=== PATIENT | female | born 1985 | race Caucasian/White ===

== ENCOUNTER 2023-07-10 15:15 | Inpatient (IN) | payer MEDICAID ==
[~2023-07-10] VITALS: Ht 182.9 cm; Wt 66.5 kg
[2023-07-10 16:39] LABS: MEAN PLATELET VOLUME 7.5 FL (7.4-10.4)
[2023-07-10 16:41] LABS: HEMATOCRIT 39.1 % (35.0-45.0); HEMOGLOBIN 13.6 g/dl (12.0-16.0); MEAN CORPUSCULAR HGB CONC 34.7 g/dL (33.0-36.5); MEAN CORPUSCULAR VOLUME 95.2 FL (78-98); PLATELET COUNT 320 X10'3 (140-440); RED BLOOD COUNT 4.11 X10'6 (4.20-5.60); RED CELL DISTRIBUTION WIDTH 15.5 % (11.5-14.5); WHITE BLOOD COUNT 8.5 X10'3 (4.5-11.0)
[2023-07-10 16:48] LABS: ALANINE AMINOTRANSFERASE 69 U/L (12-78); ALBUMIN 4.4 G/DL (3.4-5.0); ALBUMIN/GLOBULIN RATIO 1.2 (1.1-1.5); ALKALINE PHOSPHATASE 88 IU/L (46-116); ANION GAP 15 (8-16); ASPARTATE AMINO TRANSFERASE 108 U/L (10-37); BILIRUBIN,TOTAL 0.5 MG/DL (0.1-1.0); BLOOD UREA NITROGEN 7 MG/DL (7-18); BUN/CREATININE RATIO 9.1 (10.0-20.0); CALCIUM 9.6 MG/DL (8.5-10.1); CHLORIDE 95 MMOL/L (99-107); CREATININE 0.77 MG/DL (0.40-0.90); GLUCOSE 88 MG/DL (70-104); LIPASE 37 U/L (16-77); POTASSIUM 3.3 MMOL/L (3.5-5.1); SODIUM 136 MMOL/L (135-145); TOTAL CARBON DIOXIDE 26.1 MMOL/L (24-32); TOTAL PROTEIN 8.2 G/DL (6.4-8.2); eCRCL 103 ML/MIN; eGFR 83 ML/MIN
[2023-07-10] MEDS ORDERED: pantoprazole 40 MG vial IV ONE (16:55)
[2023-07-10] MEDS ORDERED: pantoprazole 40 MG/NS 100ML add-vantage BAG IV ONE (16:55)
[2023-07-10] MEDS ORDERED: mag hydrox/Alum hydrox/simeth 30ml oral suspension PO ONE ×2 (16:55→19:28)
[2023-07-10 17:04] LABS: PLATELET ESTIMATE NORMAL; TOTAL CELLS COUNTED 100
[2023-07-10] MEDS ORDERED: LORazepam 2 mg/ml vial IV ONE (17:10)
[2023-07-10] MEDS ORDERED: normal saline 1000ML IV soln IVB ONE (17:10)
[2023-07-10] MEDS ORDERED: pantoprazole 40mg IV 80 MG in normal saline 100ml IV soln 100 ML IV ONE (17:10)
[2023-07-10 17:17] LABS: ETHANOL 265 MG/DL (<10)
[2023-07-10] MEDS ORDERED: ondansetron/PF 4mg/2ml inj IV ONE ×2 (18:10)
[2023-07-10] MEDS ORDERED: potassium Cl 20mEq/100mL bag 100 ML IV SCH (18:40)
[2023-07-10] MEDS ORDERED: potassium Cl 40MEQ/1/2NS 520ml 520 ML IV ONE (19:00)
[2023-07-10 19:11] LABS: INR 0.9 INR
[2023-07-10] MEDS: octreotide inj. 500 MCG in normal saline 100ml IV soln 97.5 ML IV SCH ×2 (19:35→19:36)
[2023-07-10 19:48] LABS: URINE HCG NEGATIVE (NEG)
[2023-07-10 19:54] LABS: BILIRUBIN,URINE NEGATIVE (Neg); CLARITY,URINE CLOUDY (Clear); COLOR,URINE YELLOW (Yellow); GLUCOSE, URINE NEGATIVE (Neg); KETONES,URINE >=80 mg/dl (Neg); LEUKOCYTE ESTERASE ,URINE NEGATIVE (Neg); NITRITES, URINE NEGATIVE (Neg); OCCULT BLOOD,URINE TRACE-INTACT (Neg); PROTEIN,URINE 100 mg/dl (Neg); UROBILINOGEN,URINE 0.2 E.U/dL (0.2-1.0)
[2023-07-10 20:07] LABS: UA COLLECTION TYPE NON-SPECIFIED
[2023-07-10 20:08] LABS: URINE AMPHETAMINE SCREEN NEGATIVE (Neg); URINE BARBITUATE SCREEN NEGATIVE (Neg); URINE BENZODIAZEPINES SCREEN NEGATIVE (Neg); URINE CANNABINOID SCREEN NEGATIVE (Neg); URINE COCAINE SCREEN POSITIVE (Neg); URINE METHADONE SCREEN NEGATIVE (Neg); URINE OPIATE SCREEN NEGATIVE (Neg); URINE PHENCYCLIDINE SCREEN NEGATIVE (Neg)
[2023-07-10 20:09] LABS: MUCUS STRANDS NONE SEEN /LPF (Neg); SQUAMOUS EPITHELIAL CELL,UR MODERATE /LPF (FEW); WBC,URINE 0-4 /HPF (0-4)
[2023-07-10 20:10] LABS: TRANSITIONAL EPI CELLS,URINE FEW /HPF
[2023-07-10 20:11] LABS: AMORPHOUS PHOSPHATES 3+
[2023-07-10 20:12] LABS: BACTERIA,URINE FEW /HPF (Neg); RBC,URINE 0-2 /HPF (0-2)
[2023-07-10] MEDS ORDERED: potassium Cl 20 mEq SR tablet PO PRN ×2 (21:10)
[2023-07-10] MEDS ORDERED: HYDROcodone/acetaminophen 5mg/325mg tablet PO PRN (21:10)
[2023-07-10] MEDS ORDERED: LORazepam 1 MG tablet PO PRN (21:10)
[2023-07-10] MEDS ORDERED: morphine 2 MG/ML inj. syringe IV PRN (21:10)
[2023-07-10] MEDS ORDERED: potassium Cl 40MEQ/1/2NS 520ml 520 ML IV PRN (21:10)
[2023-07-10] MEDS ORDERED: magnesium 2GM in 50ml NS 50 ML IV PRN (21:10)
[2023-07-10] MEDS ORDERED: acetaminophen 325mg tablet PO PRN ×2 (21:10)
[2023-07-10] MEDS ORDERED: magnesium 4gm in 100ml NS 100 ML IV PRN (21:10)
[2023-07-10] MEDS ORDERED: ondansetron/PF 4mg/2ml inj IV PRN (21:10)
[2023-07-10] MEDS ORDERED: magnesium Cl slow-release 64mg tablet PO PRN (21:10)
[2023-07-10] MEDS: LORazepam 2 mg/ml vial IV PRN (21:33)
[2023-07-10] MEDS: normal saline 1000ml 1,000 ML IV SCH (21:47)
[2023-07-11] VITALS (8 sets, daily range): BP systolic 128–159; BP diastolic 89–110; PULSE 80–92; RESP 12–18; TEMP 98.2; O2SAT 94–100
[2023-07-11] MEDS: nicotine 14mg patch - 24hr TD SCH ×2 (01:13→08:00)
[2023-07-11] MEDS: LORazepam 2 mg/ml vial IV PRN (03:45)
--- NOTE | 2023-07-11 04:11 | NUR ---
pt ambulatory to the BR independently c steady gait. VSS
[2023-07-11] MEDS ORDERED: pantoprazole 40MG/NS 100ML BAG 100 ML IV SCH (08:00)
[2023-07-11] MEDS ORDERED: folic acid 1mg/0.2ml inj IV SCH (08:00)
[2023-07-11] MEDS ORDERED: thiamine 100mg/ml 2ml inj. IV SCH (08:00)
[2023-07-11] MEDS: normal saline 1000ml 1,000 ML IV SCH (08:04)
[2023-07-11 09:26] LABS: BASOPHILS # (AUTO) 0.1 X10'3 (0-0.2); BASOPHILS % (AUTO) 1.8 % (0-1); EOSINOPHILS # (AUTO) 0.2 X10'3 (0-0.9); EOSINOPHILS % (AUTO) 2.8 % (0-6); HEMATOCRIT 37.2 % (35.0-45.0); HEMOGLOBIN 12.3 g/dl (12.0-16.0); LYMPHOCYTES % (AUTO) 17.2 % (21-51); MEAN CORPUSCULAR HEMOGLOBIN 32.1 PG (27.0-31.0); MEAN CORPUSCULAR VOLUME 97.2 FL (78-98); MEAN PLATELET VOLUME 8.2 FL (7.4-10.4); MONOCYTES # (AUTO) 0.6 X10'3 (0-0.9); MONOCYTES % (AUTO) 10.5 % (2-12); NEUTROPHILS # (AUTO) 4.1 X10'3 (1.8-7.7); NEUTROPHILS % (AUTO) 67.7 % (42-75); PLATELET COUNT 268 X10'3 (140-440); RED BLOOD COUNT 3.83 X10'6 (4.20-5.60); RED CELL DISTRIBUTION WIDTH 15.4 % (11.5-14.5); WHITE BLOOD COUNT 6.1 X10'3 (4.5-11.0)
[2023-07-11 10:07] LABS: ALANINE AMINOTRANSFERASE 67 U/L (12-78); ALBUMIN 3.6 G/DL (3.4-5.0); ALBUMIN/GLOBULIN RATIO 1.1 (1.1-1.5); ALKALINE PHOSPHATASE 75 IU/L (46-116); ANION GAP 20 (8-16); ASPARTATE AMINO TRANSFERASE 105 U/L (10-37); BILIRUBIN,TOTAL 1.2 MG/DL (0.1-1.0); BLOOD UREA NITROGEN 9 MG/DL (7-18); CALCIUM 8.1 MG/DL (8.5-10.1); CHLORIDE 98 MMOL/L (99-107); CREATININE 0.75 MG/DL (0.40-0.90); GLUCOSE 77 MG/DL (70-104); LIPASE 24 U/L (16-77); MAGNESIUM 2.3 MG/DL (1.5-2.4); PHOSPHORUS 3.2 MG/DL (2.3-4.5); POTASSIUM 4.4 MMOL/L (3.5-5.1); SODIUM 136 MMOL/L (135-145); TOTAL CARBON DIOXIDE 18.2 MMOL/L (24-32); TOTAL PROTEIN 6.8 G/DL (6.4-8.2); eCRCL 106 ML/MIN; eGFR 86 ML/MIN
--- NOTE | 2023-07-11 11:21 | NUR ---
Received order for consult. Met with patient in regards to substance/alcohol use and to see if patient was interested in resources for treatment options. Patient declined resources.
[2023-07-11] MEDS ORDERED: NO HOME MEDS (12:25)
--- NOTE | 2023-07-11 13:22 | NUR ---
pt at gi lab
[2023-07-11] MEDS ORDERED: LIDOcaine Viscous 15ml cup ONE (14:02)
[2023-07-11] MEDS ORDERED: fentaNYL/PF 50MCG/1 ML 2ML syringe ONE (14:02)
[2023-07-11] MEDS ORDERED: MIDAZolam 1 MG/ML 5ML VIAL ONE (14:02)
--- NOTE | 2023-07-11 15:15 | NUR ---
returned from GI lab.
--- NOTE | 2023-07-11 15:23 | NUR ---
Pt requested to be discharged, hospitalist dr. bledsoe contacted. She will contact attending hospitalist dr. estrada and review findings.
--- NOTE | 2023-07-11 16:00 | NUR ---
Pt eloped from unit. [facility] notified, pt had IVs in place.
[2023-07-12 06:12] LABS: OCCULT BLOOD STOOL POSITIVE (Neg)
== END 2023-07-11 16:18 | disposition left against medical advice (07) | DRG 241 ==
LOC: ER 15:16 → ED HOLD 21:17
PROVIDERS: ADMIT Internal Medicine; ATTEND Internal Medicine
PROC: 0DB68ZX Excision of Stomach, Via Natural or Artificial Opening Endoscopic, Diagnostic (ICD-10-PCS; principal; 2023-07-11)
PROC: 0DB78ZX Excision of Stomach, Pylorus, Via Natural or Artificial Opening Endoscopic, Diagnostic (ICD-10-PCS; 2023-07-11)
DX: K25.4 Chronic or unspecified gastric ulcer with hemorrhage (principal); K21.01 Gastro-esophageal reflux disease with esophagitis, with bleeding; K29.71 Gastritis, unspecified, with bleeding; E87.6 Hypokalemia; F17.210 Nicotine dependence, cigarettes, uncomplicated; K59.00 Constipation, unspecified; F10.129 Alcohol abuse with intoxication, unspecified; Z53.21 Procedure and treatment not carried out due to patient leaving prior to being seen by health care provider
CPT/HCPCS: 36415; 43239; 74176; 80053; 80305; 80320; 81001; 81025; 82140; 82272; 83690; 83735; 84100; 84484; 85007; 85025; 85610; 86885; 86900; 86901; 99152; 99285; A6222; C9113; G0378; J2060; J2250; J2354; J2405; J3010; J3411; J3480; J3490; J7030